=== PATIENT | female | born 1945 | race Caucasian/White ===

== ENCOUNTER 2020-05-02 13:26 | Inpatient (IN) | payer MEDICARE, BC ==
--- NOTE | 2020-05-02 13:46 | ED ---
General Adult HPI - General Stated complaint: Weak/rectal bleed Time Seen by Provider: 05/02/20 13:27 - History of Present Illness Initial comments: Dictation was produced using [employer] dictation software. please excuse any grammatical, word or spelling errors. This patient was cared for during a federal and state declared state of emergency secondary to Covid 19 Chief Complaint: 74 yo female initially presented to [facility] presents to our emergency Department for GI bleed History of Present Illness: Patient is a 74-year-old female she initially presented to [facility] where she was evaluated for 48 hours of weakness. Patient states that last week she had a EGD performed by one of our GI doctors, Dr. Olivares. She had biopsies performed to the duodenum. Patient was evaluated at [facility] she was found to have positive stool occult blood. She also was found have a hemoglobin of 7.0. Patient was given blood transfusion. Patient has any pain complaints at this time. Denies any nausea o r vomiting. Does complain of some mild lightheadedness. Patient denies any pain complaints The ROS documented in this emergency department record has been reviewed and confirmed by me. Those systems with pertinent positive or negative responses have been documented in the HPI. All other systems are other negative and/or noncontributory. PHYSICAL EXAM: General Impression: Alert and oriented x3, not in acute distress HEENT: Normocephalic atraumatic, extra-ocular movements intact, pupils equal and reactive to light bilaterally, pale conjunctival Cardiovascular: Heart regular rate and rhythm Chest: Able to complete full sentences, no retractions, no tachypnea Abdomen: abdomen soft, non-tender, non-distended, no organomegaly Musculoskeletal: Pulses present and equal in all extremities, no peripheral edema Motor: no focal deficits noted Neurological: CN II-XII grossly intact, no focal motor or sensory deficits noted Skin: Intact with no visualized rashes Psych: Normal affect and mood ED course:. 74-year-old female presents with GI bleed. She had a hemoglobin of 7.0. Patient was transfused blood at [place]. She is transferred here for GI bleed. Her GI doctor is Dr. Saenz. [place] documentation was reviewed. She had a hemoglobin of 7.0, white count of 19.3, platelets of 243-like acidosis at 2.7 BUN of 46, creatinine of 0.5 Review labs are obtained. Hemoglobin at 7.2. Leukocytosis of 15.5, elevated BUN to creatinine ratio with BUN of 40 and a creatinine of 0.44. Patient started on maintenance fluids. Case is [facility] who is aware that there is no GI coverage today however there went except patient care given that we have GI coverage tomorrow. Case is rediscussed with [facility] who is aware of patient's labs is willing to accept patient care to our hospital. - Related Data Home Medications Medication Instructions Recorded Confirmed Acetaminophen Tab [Tylenol] 1,000 mg PO BID 02/25/14 05/02/20 Calcium Carbonate/Vitamin D3 1 tab PO DAILY 02/25/14 05/02/20 [Calcium 600-Vit D3 400 Tablet] Multivitamins, Thera [Multivitamin 1 tab PO DAILY 02/25/14 05/02/20 (formulary)] Apixaban [Eliquis] 5 mg PO BID 05/02/20 05/02/20 Cephalexin [Keflex] 250 mg PO DAILY 05/02/20 05/02/20 Cholecalciferol [Vitamin D3 (25 25 mcg PO DAILY 05/02/20 05/02/20 Mcg = 1000 Iu)] Cranberry Fruit Extract [Cranberry] 400 mg PO DAILY 05/02/20 05/02/20 Gabapentin [Neurontin] 100 mg PO TID 05/02/20 05/02/20 Losartan Potassium [Cozaar] 50 mg PO DAILY 05/02/20 05/02/20 Metoprolol Tartrate [Lopressor] 50 mg PO BID 05/02/20 05/02/20 Vitamin B Complex 1 cap PO DAILY 05/02/20 05/02/20 Allergies Allergy/AdvReac Type Severity Reaction Status Date / Time Sulfa (Sulfonamide Allergy Rash/Hives Verified 05/02/20 14:24 Antibiotics) Review of Systems ROS Statement: Those systems with pertinent positive or pertinent negative responses have been documented in the HPI. ROS Other: All systems not noted in ROS Statement are negative. Past Medical History Past Medical History: COPD, Deep Vein Thrombosis (DVT), Hypertension, Osteoarthritis (OA), Pneumonia History of Any Multi-Drug Resistant Organisms: None Reported Past Surgical History: Appendectomy, Cholecystectomy, Orthopedic Surgery, Tonsillectomy Additional Past Surgical History / Comment(s): left ankle and tib/fib, spleenectomy, double mastectomy, left kidney removed, twisted bowel, severe sepsis with septic shock Past Anesthesia/Blood Transfusion Reactions: No Reported Reaction Past Psychological History: No Psychological Hx Reported Past Alcohol Use History: Rare Past Drug Use History: None Reported - Past Family History Mother Family Medical History: Hypertension Father Family Medical History: Cancer Course Vital Signs 05/02/20 13:49 Temperature 97.8 F Pulse Rate 77 Respiratory 16 Rate Blood Pressure 93/46 O2 Sat by Pulse 97 Oximetry Medical Decision Making - Lab Data Result diagrams: 05/02/20 14:42 05/02/20 14:42 Lab Results 05/02/20 05/02/20 05/02/20 Range/Units 14:42 14:42 14:42 WBC 15.5 H (3.8-10.6) k/uL RBC 2.11 L (3.80-5.40) m/uL Hgb 7.2 L (11.4-16.0) gm/dL Hct 21.3 L (34.0-46.0) % MCV 101.1 H (80.0-100.0) fL MCH 33.9 (25.0-35.0) pg MCHC 33.5 (31.0-37.0) g/dL RDW 16.4 H (11.5-15.5) % Plt Count 206 (150-450) k/uL MPV 8.4 Anisocytosis Slight Macrocytosis Slight Sodium 134 L (137-145) mmol/L Potassium 4.2 (3.5-5.1) mmol/L Chloride 108 H (98-107) mmol/L Carbon Dioxide 24 (22-30) mmol/L Anion Gap 2 mmol/L BUN 40 H (7-17) mg/dL Creatinine 0.44 L (0.52-1.04) mg/dL Est GFR (CKD-EPI)AfAm >90 (>60 ml/min/1.73 sqM) Est GFR (CKD-EPI)NonAf >90 (>60 ml/min/1.73 sqM) Glucose 99 (74-99) mg/dL Plasma Lactic Acid Ruddy 1.1 (0.7-2.0) mmol/L Calcium 8.3 L (8.4-10.2) mg/dL Disposition Clinical Impression: GI bleed Disposition: ADMITTED IP TO THIS HOSP Condition: Fair Referrals: Lloyd Valera MD [Primary Care Provider] - 1-2 days Decision Time: 15:41
[2020-05-02 15:07] LABS: African American GFR (CKD) >90 (>60 ml/min/1.73 sqM); Anion Gap 2 mmol/L; Blood Urea Nitrogen 40 mg/dL (7-17); Calcium 8.3 mg/dL (8.4-10.2); Carbon Dioxide 24 mmol/L (22-30); Chloride 108 mmol/L (98-107); Glucose 99 mg/dL (74-99); Non-African American GFR(CKD) >90 (>60 ml/min/1.73 sqM); Potassium 4.2 mmol/L (3.5-5.1); Sodium 134 mmol/L (137-145)
[2020-05-02 15:19] LABS: Anisocytosis Slight; HCT 21.3 % (34.0-46.0); HGB 7.2 gm/dL (11.4-16.0); MCH 33.9 pg (25.0-35.0); MCHC 33.5 g/dL (31.0-37.0); MCV 101.1 fL (80.0-100.0); Macrocytosis Slight; Mean Platelet Volume 8.4; Platelet Count 206 k/uL (150-450); RBC 2.11 m/uL (3.80-5.40); RDW 16.4 % (11.5-15.5); WBC 15.5 k/uL (3.8-10.6)
[2020-05-02] MEDS ORDERED: NALOXONE 0.4 MG/ML 1 ML VIAL IV PRN ×2 (15:39→15:48)
[2020-05-02] MEDS ORDERED: ONDANSETRON 4 MG/2 ML VIAL IVP PRN (15:39)
[2020-05-02] MEDS ORDERED: PANTOPRAZOLE 40 MG/10 ML VIAL IV SCH (15:45)
--- NOTE | 2020-05-02 15:48 | P.HPIM ---
History of Present Illness H&P Date: 05/02/20 Chief Complaint: weakness 74 yo female with history of atrial fibrillation on anticoagulation initially presented to [facility] presents to our emergency Department for GI bleed. She initially went to the ER due to increasing dizziness, generalized weakness as well as black stools. Patient states that last week she had a EGD performed by dr Olivares and that found 2 polyps which were resected according to patient. No ulcers were found. She had biopsies performed. Denies any nausea or vomiting. Does complain of some mild lightheadedness. No fevers or chills. No abdominal pain. Her history is significant for tongue cancer which was removal about 2 years ago. She currently can only eat liquid diet. Patient noticed that her blood pressure was low at home. It was in the 80s and 90s systolic when she checked it. Lab at the outside hospital revealed positive occult blood, lactic acid 2.7, glucose 117, calcium 8.7, creatinine 0.5, BUN 46, CO2 24, potassium 4, sodium 133. Hemoglobin 7, hematocrit 21, white count 19,000, platelet count 243. Blood pressure examination in the ER showed a systolic. Blood transfusion as well as IV PPI were initiated at the outside hospital. Review of Systems Complete review of system performed, pertinent positives per HPI, otherwise negative Past Medical History Past Medical History: COPD, Deep Vein Thrombosis (DVT), Hypertension, Osteoarthritis (OA), Pneumonia History of Any Multi-Drug Resistant Organisms: None Reported Past Surgical History: Appendectomy, Cholecystectomy, Orthopedic Surgery, Tonsillectomy Additional Past Surgical History / Comment(s): left ankle and tib/fib, spleenectomy, double mastectomy, left kidney removed, twisted bowel, severe sepsis with septic shock Past Anesthesia/Blood Transfusion Reactions: No Reported Reaction Past Psychological History: No Psychological Hx Reported Past Alcohol Use History: Rare Past Drug Use History: None Reported - Past Family History Mother Family Medical History: Hypertension Father Family Medical History: Cancer Medications and Allergies Home Medications Medication Instructions Recorded Confirmed Type Acetaminophen Tab [Tylenol] 1,000 mg PO BID 02/25/14 05/02/20 History Calcium Carbonate/Vitamin D3 1 tab PO DAILY 02/25/14 05/02/20 History [Calcium 600-Vit D3 400 Tablet] Multivitamins, Thera [Multivitamin 1 tab PO DAILY 02/25/14 05/02/20 History (formulary)] Apixaban [Eliquis] 5 mg PO BID 05/02/20 05/02/20 History Cephalexin [Keflex] 250 mg PO DAILY 05/02/20 05/02/20 History Cholecalciferol [Vitamin D3 (25 25 mcg PO DAILY 05/02/20 05/02/20 History Mcg = 1000 Iu)] Cranberry Fruit Extract [Cranberry] 400 mg PO DAILY 05/02/20 05/02/20 History Gabapentin [Neurontin] 100 mg PO TID 05/02/20 05/02/20 History Losartan Potassium [Cozaar] 50 mg PO DAILY 05/02/20 05/02/20 History Metoprolol Tartrate [Lopressor] 50 mg PO BID 05/02/20 05/02/20 History Vitamin B Complex 1 cap PO DAILY 05/02/20 05/02/20 History Allergies Allergy/AdvReac Type Severity Reaction Status Date / Time Sulfa (Sulfonamide Allergy Rash/Hives Verified 05/02/20 14:24 Antibiotics) Physical Exam Vitals: Vital Signs Temp Pulse Resp BP Pulse Ox 05/02/20 13:49 97.8 F 77 16 93/46 97 Intake and Output 05/01/20 05/02/20 05/02/20 22:59 06:59 14:59 Other: Weight 58.06 kg Constitutional: No acute distress, conversant, pleasant Eyes:Anicteric sclerae, moist conjunctiva, no lid-lag, PERRLA, ENMT: Oropharynx clear, no erythema, exudates Neck: Supple, FROM, no masses, or JVD, No carotid bruits, No thyromegaly Lungs: Clear to auscultation, Clear to percussion, Normal respiratory effort, no accessory muscle use Cardiovascular: Heart regular in rate and rhythm, No murmurs, gallops, or rubs, No peripheral edema Abdominal: Soft, Nontender, no guarding, rebound or rigidity, Normoactive bowel sounds, No hepatomegaly, No splenomegaly, No palpable mass Skin: Normal temperature, tone, texture, turgor, no induration, No subcutaneous nodules, No rash, lesions, No ulcers Extremities: No digital cyanosis, No clubbing, Pedal pulses intact and symmetrical, Radial pulses intact and symmetrical, No calf tenderness Psychiatric: Alert and oriented to person, place and time, appropriate affect, i ntact judgement Neuro: Muscles Strength 5/5 in all 4 extremities, Sensation to light touch grossly present throughout, Cranial nerves II-XII grossly intact, no focal sensory deficits Results CBC & Chem 7: 05/02/20 14:42 05/02/20 14:42 Assessment and Plan Plan: Acute GI bleeding IV PPI, Protonix 40 mg twice a day IV fluids Monitor hemoglobin, cycle every 6 hours Nothing by mouth Consult GI Atrial fibrillation with normal heart rate Hold anticoagulation due to above Resume metoprolol Hypotension Likely secondary to GI bleeding IV fluids Hold blood pressure medications COPD, Osteoarthritis (OA) Stable Resume meds Patient admitted to inpatient, expected length of stay more than 2 midnight
[2020-05-02 16:47] LABS: Lymphocytes # (M) 13.33 k/uL (1.0-4.8); Monocytes # (M) 0.16 k/uL (0-1.0); Neutrophils # (M) 2.02 k/uL (1.3-7.7); Neutrophils % (M) 13 %; Nucleated Red Blood Cells 0 /100 WBC (0-0); Total Cells Counted 100
[2020-05-02 16:49] LABS: Polychromasia Present
[2020-05-02] MEDS ORDERED: SODIUM CHLORIDE 0.9% 500 ML 1,000 ML IV ONE (17:22)
[2020-05-02] MEDS: SODIUM CHLORIDE 0.9% 1,000 ML IV SCH (17:29)
[2020-05-02] MEDS ORDERED: SODIUM CHLORIDE 0.9% 500 ML 500 ML IV ONE (17:32)
[2020-05-02 20:11] LABS: MCH 34.2 pg (25.0-35.0); MCHC 33.4 g/dL (31.0-37.0); MCV 102.3 fL (80.0-100.0); Macrocytosis Slight; Mean Platelet Volume 8.2; Platelet Count 192 k/uL (150-450); RBC 1.96 m/uL (3.80-5.40); RDW 15.9 % (11.5-15.5); WBC 16.4 k/uL (3.8-10.6)
[2020-05-02 20:24] LABS: HGB 6.7 gm/dL (11.4-16.0)
[2020-05-02] MEDS: ACETAMINOPHEN TAB 325 MG TAB PO PRN (22:04)
[2020-05-02] MEDS: PANTOPRAZOLE 40 MG/10 ML VIAL IVP SCH (22:04)
[2020-05-02] MEDS: METOPROLOL TARTRATE 50 MG TAB PO SCH (22:30)
[2020-05-02] MEDS: GABAPENTIN 100 MG CAP PO SCH (22:30)
[2020-05-03] MEDS: SODIUM CHLORIDE 0.9% 1,000 ML IV SCH ×2 (04:15→20:17)
[2020-05-03 07:28] LABS: Anisocytosis Slight; Basophils # (A) 0.1 k/uL (0-0.2); Basophils % (A) 0 %; Eosinophils # (A) 0.2 k/uL (0-0.7); Eosinophils % (A) 1 %; HCT 24.2 % (34.0-46.0); Lymphocytes # (A) 12.6 k/uL (1.0-4.8); Lymphocytes % (A) 76 %; MCH 33.1 pg (25.0-35.0); MCV 100.4 fL (80.0-100.0); Macrocytosis Slight; Mean Platelet Volume 8.1; Monocytes # (A) 0.1 k/uL (0-1.0); Monocytes % (A) 1 %; Neutrophils # (A) 2.3 k/uL (1.3-7.7); Neutrophils % (A) 14 %; Platelet Count 214 k/uL (150-450); RBC 2.41 m/uL (3.80-5.40); RDW 17.3 % (11.5-15.5); WBC 16.6 k/uL (3.8-10.6)
[2020-05-03 07:34] LABS: ALT 11 U/L (4-34); AST 18 U/L (14-36); African American GFR (CKD) >90 (>60 ml/min/1.73 sqM); Albumin 2.4 g/dL (3.5-5.0); Alkaline Phosphatase 41 U/L (38-126); Anion Gap 2 mmol/L; Blood Urea Nitrogen 20 mg/dL (7-17); Calcium 8.4 mg/dL (8.4-10.2); Carbon Dioxide 26 mmol/L (22-30); Chloride 109 mmol/L (98-107); Glucose 98 mg/dL (74-99); Non-African American GFR(CKD) >90 (>60 ml/min/1.73 sqM); Potassium 4.5 mmol/L (3.5-5.1); Sodium 137 mmol/L (137-145); Total Bilirubin 0.6 mg/dL (0.2-1.3); Total Protein 4.5 g/dL (6.3-8.2)
[2020-05-03 07:36] LABS: Prothrombin Time 10.7 sec (9.0-12.0)
[2020-05-03 08:49] LABS: Band Neutrophils % 1 %; Basophils # (M) 0.17 k/uL (0-0.2); Eosinophils # (M) 0.33 k/uL (0-0.7); Lymphocytes # (M) 13.11 k/uL (1.0-4.8); Neutrophils % (M) 13 %; Nucleated Red Blood Cells 0 /100 WBC (0-0); Total Cells Counted 200
[2020-05-03 08:50] LABS: Polychromasia Present
[2020-05-03] MEDS: GABAPENTIN 100 MG CAP PO SCH ×3 (09:14→21:37)
[2020-05-03] MEDS: ACETAMINOPHEN TAB 325 MG TAB PO PRN ×2 (09:14→17:46)
[2020-05-03] MEDS: PANTOPRAZOLE 40 MG/10 ML VIAL IVP SCH ×2 (09:15→21:37)
[2020-05-03] MEDS: METOPROLOL TARTRATE 50 MG TAB PO SCH ×2 (09:15→21:37)
--- NOTE | 2020-05-03 11:45 | P.PN ---
Subjective Progress Note Date: 05/03/20 Principal diagnosis: Weakness Patient has required one more unit of PRBCs yesterday as Hgb dropped again after the first unit. She is currently doing well. No bowel movement yet. No other source of bleeding. No pain or sob. Objective - Vital Signs Vital signs: Vital Signs Temp 98.3 F 05/03/20 08:00 Pulse 74 05/03/20 08:00 Resp 18 05/03/20 08:00 BP 97/55 05/03/20 08:00 Pulse Ox 99 05/03/20 08:00 Intake & Output 05/02/20 05/03/20 05/03/20 18:59 06:59 18:59 Intake Total 310 Output Total 400 300 Balance -90 -300 Weight 56.699 kg 56.7 kg Intake: Blood Product 310 Rc As-1 Unit 310 [id number] Output: Urine 400 300 Other: Voiding Method Bedpan Bedpan - Exam Constitutional: No acute distress, conversant, pleasant Eyes:Anicteric sclerae, moist conjunctiva, no lid-lag, PERRLA, ENMT: Oropharynx clear, no erythema, exudates Neck: Supple, FROM, no masses, or JVD, No carotid bruits, No thyromegaly Lungs: Clear to auscultation, Clear to percussion, Normal respiratory effort, no accessory muscle use Cardiovascular: Heart regular in rate and rhythm, No murmurs, gallops, or rubs, No peripheral edema Abdominal: Soft, Nontender, no guarding, rebound or rigidity, Normoactive bowel sounds, No hepatomegaly, No splenomegaly, No palpable mass Skin: Normal temperature, tone, texture, turgor, no induration, No subcutaneous nodules, No rash, lesions, No ulcers Extremities: No digital cyanosis, No clubbing, Pedal pulses intact and symmetrical, Radial pulses intact and symmetrical, No calf tenderness Psychiatric: Alert and oriented to person, place and time, appropriate affect, intact judgement Neuro: Muscles Strength 5/5 in all 4 extremities, Sensation to light touch grossly present throughout, Cranial nerves II-XII grossly intact, no focal sensory deficits - Labs CBC & Chem 7: 05/03/20 07:03 05/03/20 07:03 Labs: Abnormal Lab Results - Last 24 Hours (Table) 05/02/20 05/02/20 05/02/20 Range/Units 14:42 14:42 19:34 WBC 15.5 H 16.4 H (3.8-10.6) k/uL RBC 2.11 L 1.96 L (3.80-5.40) m/uL Hgb 7.2 L 6.7 L* (11.4-16.0) gm/dL Hct 21.3 L 20.0 L (34.0-46.0) % MCV 101.1 H 102.3 H (80.0-100.0) fL RDW 16.4 H 15.9 H (11.5-15.5) % Lymphocytes # (1.0-4.8) k/uL Lymphocytes # (Manual) 13.33 H (1.0-4.8) k/uL Sodium 134 L (137-145) mmol/L Chloride 108 H (98-107) mmol/L BUN 40 H (7-17) mg/dL Creatinine 0.44 L (0.52-1.04) mg/dL Calcium 8.3 L (8.4-10.2) mg/dL Total Protein (6.3-8.2) g/dL Albumin (3.5-5.0) g/dL Crossmatch 05/02/20 05/03/20 05/03/20 Range/Units 21:38 07:03 07:03 WBC 16.6 H (3.8-10.6) k/uL RBC 2.41 L (3.80-5.40) m/uL Hgb 8.0 L (11.4-16.0) gm/dL Hct 24.2 L (34.0-46.0) % MCV 100.4 H (80.0-100.0) fL RDW 17.3 H (11.5-15.5) % Lymphocytes # 12.6 H (1.0-4.8) k/uL Lymphocytes # (Manual) 13.11 H (1.0-4.8) k/uL Sodium (137-145) mmol/L Chloride 109 H (98-107) mmol/L BUN 20 H (7-17) mg/dL Creatinine 0.51 L (0.52-1.04) mg/dL Calcium (8.4-10.2) mg/dL Total Protein 4.5 L (6.3-8.2) g/dL Albumin 2.4 L (3.5-5.0) g/dL Crossmatch See Detail Assessment and Plan Plan: Acute GI bleeding IV PPI, Protonix 40 mg twice a day IV fluids Nothing by mouth GI planning upper and lower scopes Atrial fibrillation with normal heart rate Hold anticoagulation due to above Resume metoprolol Hypotension Better Likely secondary to GI bleeding IV fluids Hold blood pressure medications COPD, Osteoarthritis (OA) Stable Resume meds Anticipated discharge: 2 days Disposition: Likely home
--- NOTE | 2020-05-03 16:06 | P.CONS ---
History of Present Illness - Reason for Consult Consult date: 05/03/20 GI bleed Requesting physician: Elijah Wiley - Chief Complaint Weakness, melena - History of Present Illness 74-year-old female with multiple medical comorbidities including atrial fibrillation on anticoagulation therapy, hypertension, and a history of maligna ncy of the tongue status post resection and radiation therapy in the past who was transferred from [facility] where she presented complaining of weakness and melena. The patient reports recent EGD on 04/29/2020 at which time she reports polyps removed and biopsies taken. She reports difficulty eating since her prior surgery and radiation therapy. She denies any nausea, vomiting, hematemesis but has been noting some dark-colored stool. Patient was found to have a hemoglobin of 7.2 on presentation status post 1 unit of packed red blood cells. She believes her last colonoscopy was approximately 5 years ago. She denies any abdominal pain at this time. Review of Systems REVIEW OF SYSTEMS: CONSTITUTIONAL: Denies any fevers, chills, weight change but she had reported some fatigue prior to presentation. CARDIOVASCULAR: Denies any chest pain, palpitations high or low blood pressures, she does have a known history of atrial fibrillation RESPIRATORY: Denies any shortness of breath, hemoptysis or cough. GENITOURINARY: No dysuria or hematuria. MUSCULOSKELETAL: No weakness reported. SKIN: Denies any new rashes or lesions, jaundice or pallor. PSYCHIATRIC: Denies any depression or anxiety. NEUROLOGY: Denies headache, denies any new focal deficits. EARS/NOSE/THROAT: No recent hearing change, congestion, nasal discharge or sore throat, she has a history of malignancy of the tongue status post resection and radiation therapy. EYES: No pain in eyes, discharge or change in vision. GASTROINTESTINAL: As per HPI. Past Medical History Past Medical History: Atrial Fibrillation, COPD, Deep Vein Thrombosis (DVT), Hypertension, Osteoarthritis (OA), Pneumonia History of Any Multi-Drug Resistant Organisms: None Reported Past Surgical History: Appendectomy, Cholecystectomy, Orthopedic Surgery, Tonsillectomy Additional Past Surgical History / Comment(s): left ankle and tib/fib, spleenect maryjane, double mastectomy, left kidney removed, twisted bowel, severe sepsis with septic shock Past Anesthesia/Blood Transfusion Reactions: No Reported Reaction Past Psychological History: No Psychological Hx Reported Smoking Status: Former smoker Past Alcohol Use History: Rare Additional Past Alcohol Use History / Comment(s): Stated Smoking at age 14, stopped smoking at age 48. Patient states she smoked 1/2 PPD. Past Drug Use History: None Reported - Past Family History Mother Family Medical History: Hypertension Father Family Medical History: Cancer Medications and Allergies Home Medications Medication Instructions Recorded Confirmed Type Acetaminophen Tab [Tylenol] 1,000 mg PO BID 02/25/14 05/02/20 History Calcium Carbonate/Vitamin D3 1 tab PO DAILY 02/25/14 05/02/20 History [Calcium 600-Vit D3 400 Tablet] Multivitamins, Thera [Multivitamin 1 tab PO DAILY 02/25/14 05/02/20 History (formulary)] Apixaban [Eliquis] 5 mg PO BID 05/02/20 05/02/20 History Cephalexin [Keflex] 250 mg PO DAILY 05/02/20 05/02/20 History Cholecalciferol [Vitamin D3 (25 25 mcg PO DAILY 05/02/20 05/02/20 History Mcg = 1000 Iu)] Cranberry Fruit Extract [Cranberry] 400 mg PO DAILY 05/02/20 05/02/20 History Gabapentin [Neurontin] 100 mg PO TID 05/02/20 05/02/20 History Losartan Potassium [Cozaar] 50 mg PO DAILY 05/02/20 05/02/20 History Metoprolol Tartrate [Lopressor] 50 mg PO BID 05/02/20 05/02/20 History Vitamin B Complex 1 cap PO DAILY 05/02/20 05/02/20 History Allergies Allergy/AdvReac Type Severity Reaction Status Date / Time Sulfa (Sulfonamide Allergy Rash/Hives Verified 05/02/20 14:24 Antibiotics) Physical Exam Vitals: Vital Signs Temp Pulse Pulse Resp BP BP Pulse Ox 05/03/20 12:00 83 18 93/54 98 05/03/20 08:00 98.3 F 74 18 97/55 99 05/03/20 03:38 97.7 F 77 77 17 105/57 105/57 96 05/03/20 02:09 101/57 05/03/20 01:20 93/47 05/03/20 01:10 97.9 F 72 16 95/44 95 05/03/20 00:40 98.4 F 68 17 95/52 98 05/03/20 00:30 98.3 F 68 16 95/50 96 05/02/20 23:15 97.8 F 74 16 94/48 96 05/02/20 20:20 98.4 F 94 16 108/53 97 05/02/20 18:13 105/50 05/02/20 17:57 102/53 05/02/20 17:25 97/57 05/02/20 17:00 97.6 F 92 16 85/42 98 05/02/20 16:21 89 16 98/47 96 05/02/20 14:30 80 16 98/48 96 Intake and Output 05/02/20 05/03/20 05/03/20 22:59 06:59 14:59 Intake Total 310 Output Total 200 200 700 Balance -200 110 -700 Intake: Blood Product 310 Rc As-1 Unit 310 [id number] Output: Urine 200 200 700 Other: Voiding Method Bedpan Bedpan Weight 56.699 kg 56.7 kg On physical examination, patient appears comfortable in no apparent distress. HEAD: Normocephalic, atraumatic. EYES: No scleral icterus. No conjunctival injection. MOUTH: No lesions, tongue midline, prior surgical changes noted. NECK: Trachea midline, no gross abnormalities. CHEST: Decreased air entry in all lung cuevas. HEART: S1-S2, irregularly irregular. ABDOMEN: Soft, nontender to palpation. Bowel sounds are positive. No organomegaly. No guarding or rigidity. EXTREMITIES: No pedal edema. SKIN: No rashes, no jaundice. NEUROLOGIC: Alert and oriented x3. No focal deficits. Results CBC & Chem 7: 05/03/20 07:03 05/03/20 07:03 Labs: Abnormal Lab Results - Last 24 Hours (Table) 05/02/20 05/02/20 05/02/20 Range/Units 14:42 14:42 19:34 WBC 15.5 H 16.4 H (3.8-10.6) k/uL RBC 2.11 L 1.96 L (3.80-5.40) m/uL Hgb 7.2 L 6.7 L* (11.4-16.0) gm/dL Hct 21.3 L 20.0 L (34.0-46.0) % MCV 101.1 H 102.3 H (80.0-100.0) fL RDW 16.4 H 15.9 H (11.5-15.5) % Lymphocytes # (1.0-4.8) k/uL Lymphocytes # (Manual) 13.33 H (1.0-4.8) k/uL Sodium 134 L (137-145) mmol/L Chloride 108 H (98-107) mmol/L BUN 40 H (7-17) mg/dL Creatinine 0.44 L (0.52-1.04) mg/dL Calcium 8.3 L (8.4-10.2) mg/dL Total Protein (6.3-8.2) g/dL Albumin (3.5-5.0) g/dL Crossmatch 05/02/20 05/03/20 05/03/20 Range/Units 21:38 07:03 07:03 WBC 16.6 H (3.8-10.6) k/uL RBC 2.41 L (3.80-5.40) m/uL Hgb 8.0 L (11.4-16.0) gm/dL Hct 24.2 L (34.0-46.0) % MCV 100.4 H (80.0-100.0) fL RDW 17.3 H (11.5-15.5) % Lymphocytes # 12.6 H (1.0-4.8) k/uL Lymphocytes # (Manual) 13.11 H (1.0-4.8) k/uL Sodium (137-145) mmol/L Chloride 109 H (98-107) mmol/L BUN 20 H (7-17) mg/dL Creatinine 0.51 L (0.52-1.04) mg/dL Calcium (8.4-10.2) mg/dL Total Protein 4.5 L (6.3-8.2) g/dL Albumin 2.4 L (3.5-5.0) g/dL Crossmatch See Detail Assessment and Plan (1) Anemia associated with acute blood loss Narrative/Plan: 74-year-old female with multiple medical comorbidities including major fibrillation polyp was presented with complaints of fatigue and melena. Patient recently underwent EGD last week with what she reports as biopsies and polypectomy at that time at outside hospital. She has noticed some dark colored bowel movements. No abdominal pain. Last colonoscopy was 5 years ago. Patient found to be anemic with a hemoglobin of 7.2 on presentation with macrocytic indices. Unclear etiology, anemia may be multifactorial and secondary to which additional deficiencies, bone marrow pathology, cannot rule out a component of GI blood loss with the patient reporting a melanotic stool and differential including peptic ulcer disease although less likely given recent EGD, AVM, Dieulafoy lesion, small bowel pathology or lower GI pathology or other etiology. Current Visit: Yes Status: Acute Code(s): D62 - ACUTE POSTHEMORRHAGIC ANEMIA SNOMED Code(s): 239620962 (2) Melena Current Visit: Yes Status: Acute Code(s): K92.1 - MELENA SNOMED Code(s): 8401010 (3) GI bleed Current Visit: Yes Status: Acute Code(s): K92.2 - GASTROINTESTINAL HEMORRHA GE, UNSPECIFIED SNOMED Code(s): 97968418 Plan: Supportive care Clear liquid diet Nothing by mouth after midnight Plan is for EGD and colonoscopy tomorrow for further evaluation with possible video capsule endoscopy pending findings of upper and lower endoscopy with all of the risks, benefits and possible complications of the procedures pain to the patient length with all of her questions answered to her satisfaction Continue to monitor hemoglobin and hematocrit and transfuse as needed Hold anticoagulation therapy for now Thank you for allowing us to participate in the care of the patient we will continue to follow
[2020-05-03] MEDS ORDERED: PEG 3350-NA SULF,BICARB,CL/KCL 4,000 ML BOTTLE PO ONE (17:00)
[2020-05-04] MEDS ORDERED: SODIUM CHLORIDE 0.9% 500 ML 500 ML IV ONE (00:24)
[2020-05-04 01:13] LABS: Anisocytosis Slight; HGB 7.8 gm/dL (11.4-16.0); MCH 34.4 pg (25.0-35.0); MCHC 33.8 g/dL (31.0-37.0); MCV 101.8 fL (80.0-100.0); Macrocytosis Moderate; Platelet Count 196 k/uL (150-450); RBC 2.26 m/uL (3.80-5.40); RDW 16.9 % (11.5-15.5); WBC 17.7 k/uL (3.8-10.6)
[2020-05-04] MEDS ORDERED: LIDOCAINE 1% (10MG/ML) FOR IV START INTRADERMA PRN (05:00)
[2020-05-04] MEDS: LACTATED RINGERS 1,000 ML IV SCH (05:11)
[2020-05-04] MEDS: SODIUM CHLORIDE 0.9% 1,000 ML IV SCH ×2 (05:15→21:02)
[2020-05-04] MEDS: ACETAMINOPHEN TAB 325 MG TAB PO PRN ×2 (08:40→21:12)
[2020-05-04] MEDS: GABAPENTIN 100 MG CAP PO SCH ×3 (08:41→21:04)
[2020-05-04] MEDS: PANTOPRAZOLE 40 MG/10 ML VIAL IVP SCH ×2 (08:41→21:04)
[2020-05-04] MEDS: METOPROLOL TARTRATE 50 MG TAB PO SCH ×2 (08:41→21:04)
[2020-05-04] MEDS ORDERED: PROPOFOL 10 MG/ML 20 ML VIAL IV ONE (15:33)
[2020-05-04] MEDS ORDERED: LIDOCAINE 1% INJ 10MG/ML (20 ML MDV) ONE (15:33)
[2020-05-04] MEDS ORDERED: IV FLUID CONTINUATION 1,000 ML IV ONE (15:35)
--- NOTE | 2020-05-04 15:40 | P.PN ---
Subjective Progress Note Date: 05/04/20 (delayed charting seen ay 0930) Principal diagnosis: melena Patient is a 74-year-old female with a history of atrial fibrillation anticoagulated with Eliquis, COPD, history of prior DVT, and hypertension who presented initially to [facility] secondary to complaints of GI bleed. She was transferred here for evaluation for possible GI bleeding. He was admitted and placed on Protonix. GI consult was ordered. She did require 1 unit of packed red blood cells. Hemoglobin stayed stable after her transfusion. She was seen by GI on 05/03 and arrangements were made to prep for EGD and repeat colonoscopy. Of note she recently had an EGD and colonoscopy with polypectomy by Dr. Olivares. Patient seen and examined at bedside. She reports feeling tired. She denies any nausea, vomiting. She went to the bathroom multiple times last night during her prep, she has been using the bedpan but has not noted any blood. She denies any chest pain or shortness of breath. General: non toxic, no distress, appears at stated age Derm: warm, dry Head: atraumatic, normocephalic, symmetric Eyes: EOMI, no lid lag, anicteric sclera Mouth: no lip lesion, mucus membranes dry Cardiovascular: S1S2 reg, no murmur, positive posterior tibial pulse bilateral, Lungs: CTA bilateral, no rhonchi, no rales , no accessory muscle use Abdominal: soft, nontender to palpation, no guarding, no appreciable organomegaly Ext: no gross muscle atrophy, no edema, no contractures Neuro: CN II-XI grossly intact, no focal neuro deficits Psych: Alert, oriented, appropriate affect Symptomatic anemia, suspect GI bleed -PPI -Nothing by mouth and awaiting scope -GI recommendations -Follow CBC status post 1 unit packed red blood cells Leukocytosis -Suspect reactive -Follow CBC -No signs or symptoms of infection Paroxysmal atrial fibrillation -Eliquis on hold -Continue with metoprolol Hypertension -Continue with Lopressor -Cozaar on hold secondary to low blood pressures Leukocytosis, suspect reactive Hyponatremia, resolved Lactic acidosis at outside facility, resolved DVT prophylaxis: SCDs Discussed with:, Nursing Anticipated discharge: in A.m. Anticipated discharge place: home A total of 30 minutes was spent on the care of this complex patient more than 50% of the time was spent in counseling and care coordination. Objective - Vital Signs Vital signs: Vital Signs Temp 98.0 F 05/04/20 08:00 Pulse 74 05/04/20 14:00 Resp 17 05/04/20 12:00 BP 91/57 05/04/20 12:00 Pulse Ox 100 05/04/20 12:00 Intake & Output 05/03/20 05/04/20 05/04/20 18:59 06:59 18:59 Intake Total 800 Output Total 9359 620 2528 Balance -300 -500 -1100 Weight 56.5 kg Intake: Oral 800 Output: Urine 1100 500 200 Stool 900 Other: Voiding Method Bedpan Bedpan # Voids 1 # Bowel Movements 1 - Labs CBC & Chem 7: 05/04/20 00:52 05/03/20 07:03 Labs: Abnormal Lab Results - Last 24 Hours (Table) 05/04/20 Range/Units 00:52 WBC 17.7 H (3.8-10.6) k/uL RBC 2.26 L (3.80-5.40) m/uL Hgb 7.8 L (11.4-16.0) gm/dL Hct 23.0 L (34.0-46.0) % MCV 101.8 H (80.0-100.0) fL RDW 16.9 H (11.5-15.5) %
--- NOTE | 2020-05-04 15:59 | P.PCN ---
Date of Procedure: 05/04/20 Procedure(s) Performed: Brief history: Patient is a pleasant 74-year-old white female admitted hospital with black tarry stools and anemia and hemoglobin of 7.2 g/dL. She is scheduled for an upper endoscopy as well as colonoscopy to evaluate further. She did have an upper endoscopy done 2 weeks ago at [facility] and was noted to have mild antral gastritis and moderate size hiatal hernia. Antral biopsies were done at that time. Procedure performed: Esophagogastroduodenoscopy Colonoscopy with biopsy Preoperative diagnosis: Melena and anemia Anesthesia: MAC Procedure: After informed consent was obtained from the patient was brought into the endoscopy unit and IV sedation was administered by anesthesia under continuous monitoring. Initially upper endoscopy was done. The Olympus GF 160 video endoscope was inserted inserted into the mouth and esophagus intubated without any difficulty and was gradually advanced into the stomach and duodenum and carefully examined. The bulb and second part of the duodenum appeared normal. The scope was then withdrawn into the stomach adequately insufflated with air and upon careful examination the antrumthere was a 5 mm of occasional ulcer with no active bleeding. The body, cardia and fundus appeared normal. The scope was then withdrawn into the esophagus. The GE junction was located at 36 cm to the incisors. moderate sized well hernia noted It appeared regular with no erythema erosions or ulcerations. Rest of the esophagus appeared normal. Patient tolerated the procedure well. At this time the patient continued to remain sedation. Initial digital rectal examination was normal. Olympus CF 160 video colonoscope was then inserted into the rectum and gradually advanced to the cecum without any difficulty. Careful examination was performed as the scope was gradually being withdrawn. The prep was excellent. The cecum, ascending colon, transverse colon,was normal. In the proximal descending colon there was a 5 mm sessile polyp that was removed by biopsy. Moderate left-sided diverticulosis seen. Rest of the descending colon, sigmoid colon and rectum appeared normal. Retroflexion was performed in the rectum and no lesions were noted. Patient tolerated the procedure well. Impression: 1. Endoscopy revealed 5 mm antral ulcer with no active bleeding, moderate size hiatal hernia] 2 Colonoscopy revealed 5 mm sessile polyp in the proximal descending colon status post cold biopsy and moderate sigmoid diverticulosis] Recommendations: Findings of this examination were discussed with the patient as well as[ her family. She was advised to follow with the biopsy results. She will continue with Protonix 40 mg daily. In the meantime diet will be advanced as tolerated. She can be discharged home today or tomorrow..
[2020-05-05] MEDS ORDERED: SODIUM CHLORIDE 0.9% 500 ML 500 ML IV ONE (01:05)
[2020-05-05 02:25] VITALS: RESP 16
[2020-05-05] MEDS: LACTATED RINGERS 1,000 ML IV SCH (05:26)
[2020-05-05] MEDS: SODIUM CHLORIDE 0.9% 1,000 ML IV SCH (05:27)
[2020-05-05 07:31] LABS: Anisocytosis Slight; HCT 24.1 % (34.0-46.0); HGB 7.9 gm/dL (11.4-16.0); MCH 34.6 pg (25.0-35.0); MCHC 32.8 g/dL (31.0-37.0); MCV 105.6 fL (80.0-100.0); Macrocytosis Moderate; Mean Platelet Volume 8.1; Platelet Count 229 k/uL (150-450); RBC 2.28 m/uL (3.80-5.40); RDW 17.8 % (11.5-15.5); WBC 15.7 k/uL (3.8-10.6)
[2020-05-05 07:41] LABS: ALT 16 U/L (4-34); AST 23 U/L (14-36); African American GFR (CKD) >90 (>60 ml/min/1.73 sqM); Albumin 2.5 g/dL (3.5-5.0); Alkaline Phosphatase 48 U/L (38-126); Anion Gap 2 mmol/L; Blood Urea Nitrogen 9 mg/dL (7-17); Calcium 8.6 mg/dL (8.4-10.2); Carbon Dioxide 29 mmol/L (22-30); Chloride 104 mmol/L (98-107); Glucose 95 mg/dL (74-99); Non-African American GFR(CKD) >90 (>60 ml/min/1.73 sqM); Potassium 4.3 mmol/L (3.5-5.1); Sodium 135 mmol/L (137-145); Total Bilirubin 0.5 mg/dL (0.2-1.3); Total Protein 4.7 g/dL (6.3-8.2)
[2020-05-05] MEDS ORDERED: METOPROLOL TARTRATE 25 MG TAB PO SCH (09:00)
[2020-05-05] MEDS: GABAPENTIN 100 MG CAP PO SCH (09:17)
[2020-05-05] MEDS: PANTOPRAZOLE 40 MG/10 ML VIAL IVP SCH (09:17)
[2020-05-05 12:34] VITALS: BP 111/57; PULSE 85; TEMP 98.4
[2020-05-05 13:06] VITALS: BMI 17.7
--- NOTE | 2020-05-05 13:15 | P.PN ---
Subjective Progress Note Date: 05/05/20 Principal diagnosis: GI bleed A 74-year-old female who had been on anticoagulation therapy for atrial fibrillation transferred from [facility] where she presented complaining of weakness and melena. The patient had a recent EGD on 04/29/2020 which he reported had a polyp and biopsies taken. She reports difficulty eating since her prior surgery and radiation therapy. On presentation which he was found to have a hemoglobin of 7.2 and was transfused 1 unit of PRBC. Yesterday she underwent an upper and lower endoscopy. The EGD showed a small antral ulcer no active bleeding and the colonoscopy was significant for polyp with biopsy, and moderate sigmoid diverticulosis. The patient denies any further bowel movements today, denies any nausea or vomiting. Her hemoglobin stable at 7.9. Objective - Vital Signs Vital signs: Vital Signs Temp 97.4 F L 05/05/20 03:20 Pulse 71 05/05/20 03:20 Resp 16 05/05/20 03:20 BP 112/60 05/05/20 03:20 Pulse Ox 95 05/05/20 03:20 Intake & Output 05/04/20 05/05/20 05/05/20 18:59 06:59 18:59 Intake Total 390 480 Output Total 1100 1600 500 Balance -710 -1600 -20 Weight 51.5 kg Intake: IV 150 Oral 240 480 Output: Urine 200 1600 500 Stool 900 Other: Voiding Method Bedpan Bedpan - Exam General appearance: The patient is alert, oriented, appears in no acute distress. HET: Head is normocephalic and atraumatic. Conjunctiva pink. Sclera anicteric. Neck: Supple without lymphadenopathy. Abdomen: Soft, nontender, nondistended with bowel sounds. No guarding or rigidity. Extremities: Normal skin color and turgor. No pedal edema Skin: No rashes, no jaundice Neurological: No focal deficits. Alert and oriented 3. - Labs CBC & Chem 7: 05/05/20 07:09 05/05/20 07:09 Labs: Abnormal Lab Results - Last 24 Hours (Table) 05/05/20 05/05/20 Range/Units 07:09 07:09 WBC 15.7 H (3.8-10.6) k/uL RBC 2.28 L (3.80-5.40) m/uL Hgb 7.9 L (11.4-16.0) gm/dL Hct 24.1 L (34.0-46.0) % MCV 105.6 H (80.0-100.0) fL RDW 17.8 H (11.5-15.5) % Sodium 135 L (137-145) mmol/L Total Protein 4.7 L (6.3-8.2) g/dL Albumin 2.5 L (3.5-5.0) g/dL Assessment and Plan (1) Anemia associated with acute blood loss Narrative/Plan: 74-year-old female with multiple medical comorbidities including major fibrillation polyp was presented with complaints of fatigue and melena. Patient recently underwent EGD last week with what she reports as biopsies and polypectomy at that time at outside hospital. She has noticed some dark colored bowel movements. No abdominal pain. Last colonoscopy was 5 years ago. Patient found to be anemic with a hemoglobin of 7.2 on presentation with macrocytic indices. Unclear etiology, anemia may be multifactorial and secondary to which additional deficiencies, bone marrow pathology, cannot rule out a component of GI blood loss with the patient reporting a melanotic stool and differential including peptic ulcer disease although less likely given recent EGD, AVM, Dieulafoy lesion, small bowel pathology or lower GI pathology or other etiology. Status post EGD and colonoscopy. Upper endoscopy revealed a 5 mm antral ulcer with no active bleeding and a moderate size hiatal hernia. Colonoscopy revealed 5 mm polyp in the proximal descending colon status post biopsy. Moderate sigmoid diverticulosis. Current Visit: Yes Status: Acute Code(s): D62 - ACUTE POSTHEMORRHAGIC ANEMIA SNOMED Code(s): 508671520 (2) GI bleed Current Visit: Yes Status: Acute Code(s): K92.2 - GASTROINTESTINAL HEMORRHAGE, UNSPECIFIED SNOMED Code(s): 93634643 (3) Melena Current Visit: Yes Status: Acute Code(s): K92.1 - MELENA SNOMED Code(s): 2863153 Plan: 1. Supportive care 2. Continue Protonix 40 mg daily 3. Diabetes tolerated 4. Patient may be discharged home 5. Patient advised to follow-up with Dr. Olivares to review biopsy results. Thank you For this consultation, we will sign off at this time Dr. Santiago Olivares I agree with the dictator's note, documented as a scribe by Sandrine King.
--- NOTE | 2020-05-05 14:54 | P.DS ---
Providers Date of admission: 05/02/20 15:39 Expected date of discharge: 05/05/20 Attending physician: Elijah Wiley Consults: 05/02/20 15:40 Consult Physician Routine Consulting Provider: Micki Olivares Consult Reason/Comments: gi bleed Do you want consulting provider notified?: Yes [facility] care [facility] Course: Discharge Diagnosis: Symptomatic anemia secondary to GI bleed Leukocytosis Paroxysmal atrial fibrillation-resume Eliquis on 05/07/20 Hypertension Hyponatremia Lactic acidosis Hospital Course: Patient is a 74-year-old female with a history of atrial fibrillation anticoagulated with Eliquis, COPD, history of prior DVT, and hypertension who presented initially to [facility] secondary to complaints of GI bleed. She was transferred here for evaluation for possible GI bleeding. She was admitted and placed on Protonix. GI consult was ordered. She did require 1 un it of packed red blood cells. Hemoglobin stayed stable after her transfusion. She was seen by GI on 05/03 and arrangements were made to prep for EGD and repeat colonoscopy. Of note she recently had an EGD and colonoscopy with polypectomy recently. EGD and colonoscopy which showed 5 mm antral ulcer wtih no activting bleeding and moderate sized hital hernia. Colonoscopy showed 5 mm sessile polyp. Her HgB remained stable. SHe tolerated her diet. She was still feeling weak.She was determied to need rehab and was subsequently discharged. She will resume eliquis on 05/07/20. She was noted to have some hypotension during her hospital stay. Her metoprolol was decreased and her losartan was discontinued. Pathology of biopsy pending on discharge. Patient seen and examined at bedside. No nausea, vomiting, abdominal pain. Has not had a bowel movement. No chest pain or shortness of breath. He is scared to go home because she feels weak. Denied any lightheadedness or dizziness. Vital signs reviewed and stable. General: non toxic, no distress, appears at stated age Derm: warm, dry Head: atraumatic, normocephalic, symmetric Eyes: EOMI, no lid lag, anicteric sclera Mouth: no lip lesion, mucus membranes moist Cardiovascular: S1S2 reg, no murmur, positive posterior tibial pulse bilateral, Lungs: Decreased bs bilateral, no rhonchi, no rales , no accessory muscle use Abdominal: soft, nontender to palpation, no guarding, no appreciable organomegaly Ext: no gross muscle atrophy, no edema, no contractures Neuro: CN II-XI grossly intact, no focal neuro deficits Psych: Alert, oriented, appropriate affect A total of45 minutes of time were spent preparing this complex discharge summary . Patient Condition at Discharge: Stable Plan - Discharge Summary Discharge Rx Participant: No New Discharge Prescriptions: New Metoprolol Tartrate [Lopressor] 25 mg PO BID #60 tab Pantoprazole [Protonix] 40 mg PO BID #60 tablet. Continue Acetaminophen Tab [Tylenol] 1,000 mg PO BID Multivitamins, Thera [Multivitamin (formulary)] 1 tab PO DAILY Calcium Carbonate/Vitamin D3 [Calcium 600-Vit D3 400 Tablet] 1 tab PO DAILY Vitamin B Complex 1 cap PO DAILY Cranberry Fruit Extract [Cranberry] 400 mg PO DAILY Cholecalciferol [Vitamin D3 (25 Mcg = 1000 Iu)] 25 mcg PO DAILY Apixaban [Eliquis] 5 mg PO BID #0 Gabapentin [Neurontin] 100 mg PO TID #12 cap Discontinued Metoprolol Tartrate [Lopressor] 50 mg PO BID Losartan Potassium [Cozaar] 50 mg PO DAILY Cephalexin [Keflex] 250 mg PO DAILY Discharge Medication List Acetaminophen Tab [Tylenol] 1,000 mg PO BID 02/25/14 [History] Calcium Carbonate/Vitamin D3 [Calcium 600-Vit D3 400 Tablet] 1 tab PO DAILY 02/25/14 [History] Multivitamins, Thera [Multivitamin (formulary)] 1 tab PO DAILY 02/25/14 [History] Cholecalciferol [Vitamin D3 (25 Mcg = 1000 Iu)] 25 mcg PO DAILY 05/02/20 [History] Cranberry Fruit Extract [Cranberry] 400 mg PO DAILY 05/02/20 [History] Vitamin B Complex 1 cap PO DAILY 05/02/20 [History] Apixaban [Eliquis] 5 mg PO BID #0 05/05/20 [Rx] Gabapentin [Neurontin] 100 mg PO TID #12 cap 05/05/20 [Rx] Metoprolol Tartrate [Lopressor] 25 mg PO BID #60 tab 05/05/20 [Rx] Pantoprazole [Protonix] 40 mg PO BID #60 tablet. 05/05/20 [Rx] Follow up Appointment(s)/Referral(s): Micki Olivares MD [STAFF PHYSICIAN] - 2 Weeks ([place]) Lloyd Valera MD [Primary Care Provider] - 1-2 days Ambulatory/Diagnostic Orders: Complete Blood Count w/diff [LAB.AMB] Time Frame: 1 Week, Location: None Selected Patient Instructions/Handouts: Diet for Stomach Ulcers and Gastritis (GEN) Activity/Diet/Wound Care/Special Instructions: Activity: as tolerated Diet: GERD diet Special Instructions: take blood pressure daily and create a list to bring to your appointment with your family doctor, your blood pressure medications have been adjusted. resume xarelto on 05/07/20 repeat CBC in 1 week Discharge Disposition: HOME WITH HOME HEALTH SERVICES
[2020-05-05] MEDS: ACETAMINOPHEN TAB 325 MG TAB PO PRN (15:15)
== END 2020-05-05 17:14 | disposition home health service (06) | DRG 378 ==
LOC: EC 13:26 → 3SCARD 15:39
PROVIDERS: ADMIT Internal Medicine; ATTEND Internal Medicine
PROC: 30233N1 Transfusion of Nonautologous Red Blood Cells into Peripheral Vein, Percutaneous Approach (ICD-10-PCS; 2020-05-04)
PROC: 0DJ08ZZ Inspection of Upper Intestinal Tract, Via Natural or Artificial Opening Endoscopic (ICD-10-PCS; principal; 2020-05-04 12:30)
PROC: 0DBM8ZX Excision of Descending Colon, Via Natural or Artificial Opening Endoscopic, Diagnostic (ICD-10-PCS; 2020-05-04 12:30)
DX: K25.4 Chronic or unspecified gastric ulcer with hemorrhage (principal); D62 Acute posthemorrhagic anemia; E87.1 Hypo-osmolality and hyponatremia; I95.9 Hypotension, unspecified; K44.9 Diaphragmatic hernia without obstruction or gangrene; I48.0 Paroxysmal atrial fibrillation; Z79.01 Long term (current) use of anticoagulants; J44.9 Chronic obstructive pulmonary disease, unspecified; M19.90 Unspecified osteoarthritis, unspecified site; Z85.810 Personal history of malignant neoplasm of tongue; Z86.718 Personal history of other venous thrombosis and embolism; D72.829 Elevated white blood cell count, unspecified; I10 Essential (primary) hypertension; K29.70 Gastritis, unspecified, without bleeding; K63.5 Polyp of colon; K57.30 Diverticulosis of large intestine without perforation or abscess without bleeding
CPT/HCPCS: 36415; 43235; 45380; 80048; 80053; 83605; 83735; 84100; 85025; 85027; 85610; 86850; 86900; 86901; 86920; 87635; 88305

== ENCOUNTER 2024-06-04 09:28 | Day surgery (SDC) | payer MEDICARE, BC ==
[2024-06-02 12:05] VITALS: BMI 19.0
[~2024-06-04 09:28] MED LIST: ALPRAZolam 0.25 MG TAB PO PRN
[2024-06-04] MEDS: ASPIRIN 81 MG PO STA (11:18)
[2024-06-04] MEDS: EMPTY BAG 1 BAG with SODIUM CHLORIDE 0.9% 1,000 ML IV SCH (11:20)
[2024-06-04 11:41] VITALS: RESP 16; TEMP 97.4
[2024-06-04 12:00] LABS: Basophils # (A) 0.1 k/uL (0-0.2); Basophils % (A) 1 %; Eosinophils # (A) 0.1 k/uL (0-0.7); Eosinophils % (A) 1 %; HCT 37.8 % (34.0-46.0); HGB 11.6 gm/dL (11.4-16.0); Hypochromasia Slight; Lymphocytes # (A) 2.1 k/uL (1.0-4.8); Lymphocytes % (A) 26 %; MCH 31.6 pg (25.0-35.0); MCHC 30.7 g/dL (31.0-37.0); MCV 103.1 fL (80.0-100.0); Macrocytosis Slight; Mean Platelet Volume 8.6; Monocytes # (A) 0.3 k/uL (0-1.0); Monocytes % (A) 4 %; Neutrophils # (A) 5.3 k/uL (1.3-7.7); Neutrophils % (A) 66 %; Platelet Count 350 k/uL (150-450); RBC 3.67 m/uL (3.80-5.40)
[2024-06-04 12:10] LABS: African American GFR (CKD) >90 (>60 ml/min/1.73 sqM); Anion Gap 4 mmol/L; Blood Urea Nitrogen 23 mg/dL (7-17); Calcium 9.2 mg/dL (8.4-10.2); Carbon Dioxide 30 mmol/L (22-30); Chloride 100 mmol/L (98-107); Glucose 80 mg/dL (74-99); Non-African American GFR(CKD) 85 (>60 ml/min/1.73 sqM); Potassium 3.8 mmol/L (3.5-5.1); Sodium 134 mmol/L (137-145)
[2024-06-04] MEDS: IV FLUID CONTINUATION 1,000 ML IV ONE (12:23)
[2024-06-04] MEDS: MIDAZOLAM 2 MG/2 ML VIAL IVP ONE (12:50)
[2024-06-04] MEDS: LIDOCAINE 1% INJ 10MG/ML (30 ML VIAL-PF) SQ ONE (12:52)
[2024-06-04] MEDS ORDERED: NALOXONE 0.4 MG/ML 1 ML VIAL IVP PRN (13:12)
[2024-06-04] MEDS ORDERED: SODIUM CHLORIDE 0.9% 1,000 ML in EMPTY BAG 1 BAG IV SCH (13:15)
[2024-06-04] MEDS: IOPAMIDOL-300 100ML BTL INJ ONE (13:17)
--- NOTE | 2024-06-04 13:19 | P.PCN ---
Date of Procedure: 06/04/24 Operative Findings: AN ABDOMINAL AORTOGRAM AND BILATERAL LOWER EXTREMITIES RUNOFF PERFORMING PHYSICIAN: Elver Huang MD PROCEDURE PERFORMED: 1. An abdominal aortogram 2. Bilateral lower extremities runoff INDICATION: Symptomatic 78-year-old female patient with abnormal CTA COMPLICATION: None LEVEL OF SEDATION: Moderate was sedation length of 11 minutes APPROACH: Right common femoral artery PROCEDURE DESCRIPTION: After obtaining informed consent and explaining the procedure benefits, risks, and complications, the patient was brought to the cardiac laborer electroplating. The right groin was prepped and draped in sterile fashion. The right common femoral artery was cannulated using micropuncture technique, under ultrasound guidance. A micropuncture wire was advanced, and the micropuncture sheath was advanced over the wire, then the micropuncture sheath was exchanged over an 0.35 wire into a 5-[place] sheath dilator assembly then the wire and dilator were removed and sheath was flushed. We did an abdominal aortogram and bilateral lower extremities runoff using 5- [place] pigtail catheter using a power injection. The catheter was initially placed at the level of the renal arteries, and it was pulled into above the bifurcation of the aorta into right and left common iliac arteries. The procedure was completed and there was no complications. SELECTIVE PERIPHERAL ANGIOGRAM: The abdominal aorta: Extremely calcified The common iliac arteries: Calcified with intermediate to severe disease involving the left common iliac artery The external iliac arteries: Extremely calcified with mild to moderate disease The internal iliac arteries: Are patent The common femoral arteries: Calcified with mild to moderate disease Superficial femoral arteries: The left SFA has an ostial lesion appears to be in the range of 80 to 90%. Right SFA has moderate to severe diffuse disease Popliteal arteries: Calcified with mild to moderate disease Below the knees: There are 2 vessels runoff below the knee bilaterally CONCLUSION: Severe disease involving the left common iliac artery Severe disease involving the left SFA POSTPROCEDURE MANAGEMENT: EQUITY RESEARCH ANALYST to be done in the next few weeks
--- NOTE | 2024-06-04 13:23 | IR ---
EXAMINATION TYPE: IR angio abdominal w runoff DATE OF EXAM: 06/04/2024 1:16 PM COMPARISON: Pre Operative Images if available both CT/MRI or plain film CLINICAL INDICATION: Female, 78 years old with history of right leg pain, 2.3min fluoro, 17.7592Vfvf0 ; TECHNIQUE: IR angio abdominal w runoff, multiple fluoroscopic images provided for procedure. DAP: 17.8925 mGym2 Gycm2 uGym2 cGycm2 or equivalent. FINDINGS: IMPRESSION: 1. Report was generated for administrative purposes only. 2. Please see the operative/procedural note for further details. [facility], , 06/04/2024 1:21 PM
[2024-06-04 19:25] VITALS: BP 145/79; PULSE 68
== END 2024-06-04 18:11 | disposition home or self-care (01) ==
LOC: CATHCVL 09:28
PROVIDERS: ATTEND Internal Medicine Interventional Cardiology
DX: I70.223 Atherosclerosis of native arteries of extremities with rest pain, bilateral legs (principal); I10 Essential (primary) hypertension; E78.5 Hyperlipidemia, unspecified; I48.21 Permanent atrial fibrillation; Z79.01 Long term (current) use of anticoagulants; Z88.2 Allergy status to sulfonamides
CPT/HCPCS: 36200; 75625; 75716; 80048; 85025; C1894; C1769 ×2; J2250; J2003; Q9967

== ENCOUNTER 2024-06-11 07:42 | Day surgery (SDC) | payer MEDICARE, BC ==
[~2024-06-11 07:42] MED LIST changes: +ALPRAZolam 0.5 MG TAB PO PRN; +ZOLPIDEM 5 MG TAB PO PRN
[2024-06-11] MEDS: SODIUM CHLORIDE 0.9% 1,000 ML in EMPTY BAG 1 BAG IV ONE (08:34)
[2024-06-11] MEDS: ASPIRIN 325 MG TAB PO PRN (08:36)
[2024-06-11] MEDS: IV FLUID CONTINUATION 1,000 ML IV ONE (08:39)
[2024-06-11 09:02] LABS: Basophils # (A) 0.11 10*3/uL (0.00-0.10); Basophils % (A) 1.4 %; Eosinophils # (A) 0.12 10*3/uL (0.04-0.35); Eosinophils % (A) 1.5 %; HCT 36.8 % (37.2-46.3); Lymphocytes # (A) 2.02 10*3/uL (0.90-5.00); Lymphocytes % (A) 25.8 %; MCH 32.5 pg (27.0-32.0); MCHC 32.6 g/dL (32.0-37.0); MCV 99.7 fL (80.0-97.0); Mean Platelet Volume 9.6 fL (9.5-12.2); Monocytes # (A) 0.68 10*3/uL (0.20-1.00); Monocytes % (A) 8.7 %; Neutrophils # (A) 4.87 10*3/uL (1.80-7.70); Neutrophils % (A) 62.2 %; Platelet Count 286 10*3/uL (140-440); RBC 3.69 10*6/uL (4.10-5.20); RDW 13.3 % (11.5-14.5); WBC 7.83 10*3/uL (4.50-10.00)
[2024-06-11 09:12] LABS: African American GFR (CKD) >90 (>60 ml/min/1.73 sqM); Anion Gap 5 mmol/L; Blood Urea Nitrogen 26 mg/dL (7-17); Calcium 9.2 mg/dL (8.4-10.2); Carbon Dioxide 32 mmol/L (22-30); Chloride 98 mmol/L (98-107); Glucose 82 mg/dL (74-99); Non-African American GFR(CKD) 84 (>60 ml/min/1.73 sqM); Potassium 3.9 mmol/L (3.5-5.1); Sodium 135 mmol/L (137-145)
[2024-06-11] MEDS: HEPARIN SODIUM,PORCINE (1 ML) 2,500 UNIT in SODIUM CHLORIDE 0.9% 250 ML IRRIGATION PRN (09:30)
[2024-06-11] MEDS: HEPARIN SODIUM,PORCINE 10,000 UNIT in SODIUM CHLORIDE 0.9% 1,000 ML IRRIGATION PRN (09:30)
[2024-06-11] MEDS: LIDOCAINE 1% INJ 10MG/ML (20 ML MDV) SQ ONE (09:36)
[2024-06-11] MEDS: MIDAZOLAM 2 MG/2 ML VIAL IVP ONE ×2 (09:37→11:23)
[2024-06-11] MEDS: fentaNYL (PF) 50 MCG/ML 2 ML AMP IVP ONE ×2 (09:37→11:23)
[2024-06-11] MEDS: HEPARIN SODIUM 1,000 UN/ML (10ML VL) IV ONE (10:14)
[2024-06-11] MEDS: CLOPIDOGREL 75 MG TAB PO ONE (10:39)
[2024-06-11] MEDS: IOPAMIDOL-370 100ML BTL INJ ONE (12:00)
[2024-06-11] MEDS ORDERED: NALOXONE 0.4 MG/ML 1 ML VIAL IVP PRN (12:09)
--- NOTE | 2024-06-11 12:15 | P.PCN ---
Date of Procedure: 06/11/24 Operative Findings: PERCUTANEOUS PERIPHERAL INTERVENTION Performing physician Elver Huang M.D. Procedure performed 1. Successful angioplasty and stenting of the left SFA 2. Successful stenting of the left external iliac artery 3. Adjunctive use of IVUS and atherectomy and lithotripsy balloon 4. Left lower extremity angiogram and right common femoral artery angiogram 5. Ultrasound-guided access of the right common femoral artery Indication Symptomatic 78-year-old female patient with occlusive disease involving the left SFA and left iliac artery Approach Right common femoral Complications None Level of sedation Moderate with a sedation time of 151 minutes Procedure description After obtaining informed consent the patient was brought to the cardiac Non Destructive Testing Technician with right common femoral artery was cannulated using micropuncture technique under ultrasound guidance the micropuncture wire passed easily then initially I placed a 6 Korean subsequently 7 Korean 55 cm sheath. I had a hard time going up and over but that was performed finally using multipurpose catheter and super core wire. Left lower extremity angiogram was performed and showed occlusive disease involving the left SFA and left external iliac artery. I did wire the SFA using a [address] I did atherectomy using the Hawk device. Subsequently I did balloon angioplasty of the distal left SFA and proximal left SFA. The distal left SFA after the angioplasty did not show any evidence of dissection so I did DCB using 6 mm balloon but the proximal portion showed dissection which I decided to cover with a stent and I deployed 7.0 x 140 mm Zilver PTX drug-coated stent which was postdilated using 6 mm balloon. Please note that IVUS of the left SFA was performed and also lithotripsy balloon of the left SFA was performed before the DCB giving the heavily calcified vessel. Then I did IVUS of the left iliac which showed an area of stenosis of 70% with area of dissection which covered using 7.0 x 58 Lifestream balloon expandable stent. Final angiogram showed good angiographic results. Subsequently I did exchange my long sheath into short sheath using 035 wire before I did selective right common femoral artery angiogram. The procedure was completed with no complication Postprocedure management 1. Dual antiplatelet therapy 2. Aggressive cholesterol control 3. Risk factors modification 4. Follow-up with the patient
--- NOTE | 2024-06-11 12:59 | IR ---
EXAMINATION TYPE: IR stent intravas non coronary DATE OF EXAM: 06/11/2024 CLINICAL INDICATION: Female, 78 years old with history of left leg pain, 53.4min fluoro, 63.6862Kcle9 , TECHNIQUE: Fluoroscopy. COMPARISON: None. FINDINGS: Fluoroscopic guidance was provided during angiogram with vascular stent insertion procedur e performed by Dr. Huang. A total of 53.4 minutes of fluoroscopic time was utilized during the proced ure and 469 spot images was acquired. TOTAL DAP = 63.9418 Gycm2 IMPRESSION: As Above. [facility], , 06/11/2024 12:57 PM
[2024-06-11] MEDS: ACETAMINOPHEN TAB 500 MG TAB PO STA (14:39)
[2024-06-11] MEDS: SODIUM CHLORIDE 0.9% 1,000 ML in EMPTY BAG 1 BAG IV SCH (17:38)
[2024-06-12] MEDS: LOSARTAN 50 MG TAB PO SCH (01:02)
[2024-06-12] MEDS: METOPROLOL TARTRATE 25 MG TAB PO SCH (01:03)
[2024-06-12] MEDS: RIVAROXABAN 20 MG TAB PO SCH (06:43)
[2024-06-12 07:35] LABS: African American GFR (CKD) >90 (>60 ml/min/1.73 sqM); Non-African American GFR(CKD) >90 (>60 ml/min/1.73 sqM)
[2024-06-12] MEDS: ATORVASTATIN 40 MG TAB PO SCH (08:41)
[2024-06-12] MEDS: ASPIRIN 81 MG PO SCH (10:29)
--- NOTE | 2024-06-12 11:28 | US ---
EXAMINATION TYPE: US lower ext pseudo artery RT DATE OF EXAM: 06/12/2024 COMPARISON: NONE CLINICAL INDICATION: Female, 78 years old with history of right femoral hematoma, s/p cath; Heart cat h yesterday 06/11/24 TECHNIQUE:: Grayscale, color Doppler and spectral Doppler imaging performed of the groin, post cardia c catheter to assess for pseudoaneurysm. FINDINGS: SIDE PERFORMED: Right Color and Waveform Doppler performed to assess for the presence of pseudoaneurysm; Is there ultrasound evidence of a pseudoaneurysm:*Complex area seen in the upper groin: 6.6 x 5.2 x 2 .8 cm. There is some arterial color flow in part of it. *It is difficult to visualize where the orig in/neck is. Area could possibly connect to ROADMASTER. Very small possible neck. Exam is limited. Is there evidence of AV shunting: Not seen Is there a fluid collection present: See above. IMPRESSION: Suboptimal study. There is small to moderate size fluid collection with some blood flow a long the periphery. A clotting pseudoaneurysm is suspected. [facility], , 06/12/2024 11:26 AM
--- NOTE | 2024-06-12 13:29 | P.PN ---
Subjective HISTORY OF PRESENT ILLNESS: This is an 78-year-old female who underwent angioplasty and stenting of the left SFA and stenting of the left external iliac artery yesterday with Dr. Huang. Patient examined this morning the bedside. Patient without complaints of chest pain or shortness of breath. Patient does have a hematoma on noted to the right groin. Ultrasound completed this morning reveals small to moderate-sized fluid collection with some blood flow along the periphery. A clotting pseudoaneurysm is suspected. Telemetry reveals atrial fibrillation with controlled ventricular rates. PHYSICAL EXAM: VITAL SIGNS: Reviewed. GENERAL: Well-developed in no acute distress. NECK: Supple. No JVD or thyromegaly LUNGS: Respirations even and unlabored. Lungs essentially clear to auscultation bilaterally. HEART: Irregular rate and rhythm. S1 and S2 heard. EXTREMITIES: Normal range of motion. No clubbing or cyanosis. Peripheral pulses intact. No lower extremity edema ASSESSMENT: Peripheral arterial disease, status post angioplasty and stenting of left SFA and stenting of left external iliac artery Postprocedural pseudoaneurysm Permanent atrial fibrillation PLAN: Begin aspirin 81 mg daily Hold Xarelto Continue to monitor patient for additional 24 hours If patient remains stable, anticipate discharge home tomorrow Nurse practitioner note has been reviewed by physician. Signing provider agrees with the documented findings, assessment, and plan of care documented by GRADUATE STUDENT as a scribe. Objective - Vital Signs Vital signs: Vital Signs Temp 98.2 F 06/12/24 13:01 Pulse 71 06/12/24 13:01 Resp 17 06/12/24 13:01 BP 118/57 06/12/24 13:01 Pulse Ox 98 06/12/24 13:01 FiO2 Intake & Output 06/11/24 06/12/24 06/12/24 18:59 06:59 18:59 Intake Total 775 Output Total 400 Balance 375 Weight 56.5 kg Intake: IV 685 Oral 90 Output: Urine 400 Other: Voiding Method Toilet # Voids 1 1 - Labs CBC & Chem 7: 06/11/24 08:14 06/12/24 06:41 Labs: Abnormal Lab Results - Last 24 Hours (Table) 06/12/24 Range/Units 06:41 Creatinine 0.50 L (0.52-1.04) mg/dL
[2024-06-12 15:40] VITALS: BMI 18.9
[2024-06-12] MEDS: GABAPENTIN 100 MG CAP PO SCH (20:31)
[2024-06-12] MEDS: ACETAMINOPHEN TAB 500 MG TAB PO SCH (20:33)
[2024-06-13 07:14] VITALS: BP 129/57; PULSE 82; RESP 18; TEMP 97.6
[2024-06-13] MEDS: RIVAROXABAN 20 MG TAB PO SCH (09:33)
--- NOTE | 2024-06-13 11:10 | P.DS ---
Providers Attending physician: Elver Huang Primary care physician: Allie Mabry DO Hospital Course: HISTORY OF PRESENT ILLNESS: This is an 78-year-old female who underwent angioplasty and stenting of the left SFA and stenting of the left external iliac artery yesterday with Dr. Huang. Coreen waters examined this morning the bedside. Patient without complaints of chest pain or shortness of breath. Patient does have a hematoma on noted to the right groin. Ultrasound completed this morning reveals small to moderate-sized fluid collection with some blood flow along the periphery. A clotting pseudoaneurysm is suspected. Telemetry reveals atrial fibrillation with controlled ventricular rates. 06/13/2024 Patient examined this morning at bedside. Patient denies chest pain or pressure. Denies shortness of breath. Patient's right groin is softer today with reduction in hematoma. Vital signs are stable. The patient was deemed stable for discharge home today per Dr. Huang. The patient is to resume her Xarelto today. Please see EMR for further hospital course details. Discharge diagnosis Peripheral arterial disease, status post angioplasty and stenting of left SFA and stenting of left external iliac artery Postprocedural pseudoaneurysm Permanent atrial fibrillation Nurse practitioner note has been reviewed by physician. Signing provider agrees with the documented findings, assessment, and plan of care documented by LABOR CREW SUPERVISOR as a scribe. Plan - Discharge Summary Discharge Rx Participant: Yes New Discharge Prescriptions: New Aspirin 81 mg PO DAILY #90 tab Continue Acetaminophen Tab [Tylenol] 500 mg PO BID Calcium Carbonate/Vitamin D3 [Calcium 600-Vit D3 400 Tablet] 1 tab PO DAILY Metoprolol Tartrate [Lopressor] 25 mg PO BID #60 tab traMADol HCL 25 - 50 mg PO BID PRN PRN Reason: Pain Losartan Potassium 25 mg PO BID Furosemide [Lasix] 20 mg PO DAILY Magnesium Oxide [Mag-Ox] 400 mg PO DAILY Rivaroxaban [Xarelto] 20 mg PO DAILY Imbruvica 400mg 400 mg PO DAILY Gabapentin [Neurontin] 200 mg PO BID Cephalexin [Keflex] 250 mg PO DAILY Atorvastatin [Lipitor] 40 mg PO DAILY Discharge Medication List Acetaminophen Tab [Tylenol] 500 mg PO BID 02/25/14 [History] Calcium Carbonate/Vitamin D3 [Calcium 600-Vit D3 400 Tablet] 1 tab PO DAILY 02/25/14 [History] Metoprolol Tartrate [Lopressor] 25 mg PO BID #60 tab 05/05/20 [Rx] Atorvastatin [Lipitor] 40 mg PO DAILY 06/02/24 [History] Cephalexin [Keflex] 250 mg PO DAILY 06/02/24 [History] Furosemide [Lasix] 20 mg PO DAILY 06/02/24 [History] Gabapentin [Neurontin] 200 mg PO BID 06/02/24 [History] Losartan Potassium 25 mg PO BID 06/02/24 [History] Magnesium Oxide [Mag-Ox] 400 mg PO DAILY 06/02/24 [History] traMADol HCL 25 - 50 mg PO BID PRN 06/02/24 [History] Imbruvica 400mg 400 mg PO DAILY 06/10/24 [History] Rivaroxaban [Xarelto] 20 mg PO DAILY 06/10/24 [History] Aspirin 81 mg PO DAILY #90 tab 06/13/24 [Rx] Follow up Appointment(s)/Referral(s): Elver Huang MD [STAFF PHYSICIAN] - 06/17/24 9:15 am (FOLLOW UP APPOINTMENT MADE. )
[2024-06-14] MEDS ORDERED: RIVAROXABAN 20 MG TAB PO SCH (07:30)
== END 2024-06-13 11:38 | disposition home or self-care (01) ==
LOC: CATHCVL 07:42 → 6NMEDSUR 12:06 → CATHCVL 06-13 11:38
PROVIDERS: ATTEND Internal Medicine Interventional Cardiology
DX: I73.9 Peripheral vascular disease, unspecified (principal); I48.19 Other persistent atrial fibrillation; C91.10 Chronic lymphocytic leukemia of B-cell type not having achieved remission; I10 Essential (primary) hypertension; E78.5 Hyperlipidemia, unspecified; Z82.49 Family history of ischemic heart disease and other diseases of the circulatory system; Z88.2 Allergy status to sulfonamides; Z88.1 Allergy status to other antibiotic agents; Z79.02 Long term (current) use of antithrombotics/antiplatelets; Z79.899 Other long term (current) drug therapy
CPT/HCPCS: 37221; 75710; 37252; 37253; 80048; 82565; 85025; 93975; 93926; 99152; 99153; C1894 ×3; C1769 ×4; C1714; C1753; C9767; C1725; C2623; J2250; J1644 ×3; J2003; J3010; Q9967